=== PATIENT | female | born 1980 | race Caucasian/White ===

== ENCOUNTER 2020-01-27 10:24 | Emergency (ER) | payer MEDICAID, OTHER ==
[~2020-01-27] VITALS: Ht 167.6 cm; Wt 102.1 kg
[2020-01-27 10:24] VITALS: BP_SYST 127
--- NOTE | 2020-01-27 10:24 | NUR ---
BROUGHT BACK TO BED #1 AND TRIAGD. REPORT GIVEN TO ANNALISE
--- NOTE | 2020-01-27 10:25 | NUR ---
Pt walked in to ER w/ c/o bilat lower extremity swelling [id number]. Reports being seen in urgent care and told to start low sodium diet. Denies any trauma. No SOB, chest pain or n/v reported. V/S stable, pt is afebrile. Currently resting in bed, will continue to monitor.
--- NOTE | 2020-01-27 10:30 | NUR ---
ER Dr. Hunter at bedside examining patient.
--- NOTE | 2020-01-27 11:00 | NUR ---
Lab at bedside to draw blood.
[2020-01-27 11:26] LABS: CALCIUM 8.4 mg/dL (8.4-11.0); CREATININE 0.97 mg/dL (0.55-1.30); POTASSIUM 4.1 mmol/L (3.5-5.1)
[2020-01-27 11:28] LABS: ALBUMIN 3.6 g/dL (3.4-4.8); TOTAL BILIRUBIN 0.3 mg/dL (0.0-1.0)
--- NOTE | 2020-01-27 11:40 | NUR ---
PT REQUESTING TO R/O UTI, WILL GIVE URINE SPECIMEN
--- NOTE | 2020-01-27 11:40 | NUR ---
DR LOGAN AT BEDSIDE DISCUSSING TEST RESULTS.
--- NOTE | 2020-01-27 11:52 | NUR ---
PT GAVE URINE SPECIMEN AND URINE DIP DONE, SHOWED TO DR LOGAN. PT OK TO DISCHARGE
[2020-01-27 11:54] VITALS: BP_SYST 137
--- NOTE | 2020-01-27 11:54 | NUR ---
Patient given written and verbal discharge instructions and verbalizes understanding. ER MD discussed with patient the results and treatment provided. Patient in stable condition. ID arm band removed. Rx of LASIX given. Patient educated on pain management and to follow up with PMD. Pain Scale 0/10. Opportunity for questions provided and answered. Medication side effect fact sheet provided.
== END 2020-01-27 11:54 | disposition home or self-care (01) ==
LOC: SED 10:24
DX: I87.8 Other specified disorders of veins (principal)
CPT/HCPCS: 36415; 80053; 81002; 83880; 99283